=== PATIENT | male | born 1995 | race Caucasian/White ===

== ENCOUNTER 2017-09-05 17:18 | Emergency (ER) | payer OTHER, MEDICAID ==
[~2017-09-05] VITALS: Ht 185.4 cm; Wt 127.3 kg
[2017-09-05 17:31] VITALS: BP 152/93; PULSE 117; RESP 18; TEMP 100; O2SAT 98
[2017-09-05 20:56] VITALS: BP 164/109; PULSE 90; RESP 16; O2SAT 98
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
[2017-09-05] MEDS ORDERED: IBUP1TAB7 PO (23:08)
[2017-09-05] MEDS ORDERED: CYCL10TA PO (23:08)
== END 2017-09-05 23:20 | disposition home or self-care (01) ==
LOC: NEPD 17:18
DX: S60.221A Contusion of right hand, initial encounter (principal); M25.562 Pain in left knee; R51 Headache; V89.2XXA Person injured in unspecified motor-vehicle accident, traffic, initial encounter; Y92.414 Local residential or business street as the place of occurrence of the external cause
CPT/HCPCS: 70450; 71045; 72125; 73130; 73564; 99284